=== PATIENT | female | born 2000 | race African-American/Black ===

== ENCOUNTER 2018-11-08 19:38 | Emergency (ER) | payer BC, OTHER, SELFPAY ==
[2018-11-08] MEDS ORDERED: Ketorolac Tromethamine 60 MG/2 ML VIAL ONE (20:05)
== END 2018-11-08 20:22 | disposition home or self-care (01) ==
LOC: NAV ERS 19:38
DX: M54.5 Low back pain (principal)
CPT/HCPCS: 96372; J1885

== ENCOUNTER 2019-03-16 12:03 | Emergency (ER) | payer OTHER | END 2019-03-16 13:25 | disposition home or self-care (01) | LOC: NAV ERS 12:03 | DX: K08.89 Other specified disorders of teeth and supporting structures (principal) | CPT/HCPCS: 99281 ==

== ENCOUNTER 2019-06-28 14:33 | Emergency (ER) | payer OTHER ==
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
[2019-06-28] MEDS ORDERED: Acetaminophen 500 MG TAB ONE (15:43)
[2019-06-28] MEDS ORDERED: Ketorolac Tromethamine 60 MG/2 ML VIAL ONE (16:20)
[2019-06-28] MEDS ORDERED: Ibuprofen 200 MG TAB ONE (16:23)
== END 2019-06-28 16:35 | disposition home or self-care (01) ==
LOC: NAV ERS 14:33
DX: S16.1XXA Strain of muscle, fascia and tendon at neck level, initial encounter (principal); M41.9 Scoliosis, unspecified; V49.9XXA Car occupant (driver) (passenger) injured in unspecified traffic accident, initial encounter
CPT/HCPCS: 72125; G0390; J1885; L0120

== ENCOUNTER 2022-07-21 14:37 | Emergency (ER) | payer OTHER ==
[2022-07-21] MEDS ORDERED: Dexamethasone 4 MG TAB ONE (16:15)
== END 2022-07-21 17:40 | disposition home or self-care (01) ==
LOC: NAV ERS 14:37
DX: J06.9 Acute upper respiratory infection, unspecified (principal)
CPT/HCPCS: 87081; 87430; 87804; 99283; J8540

== ENCOUNTER 2025-03-31 13:14 | Emergency (ER) | payer OTHER, SELFPAY | END 2025-03-31 13:15 | disposition home or self-care (01) | LOC: NAV ERS 13:14 | DX: U07.1 COVID-19 (principal); I10 Essential (primary) hypertension | CPT/HCPCS: 87426; 99283 ==